=== PATIENT | female | born 1980 | race Caucasian/White ===

== ENCOUNTER → 2017-08-20 13:39 | Outpatient (CLI) | payer OTHER, SELFPAY ==
--- NOTE | 2017-08-20 13:46 | US_ITS ---
STUDY: ULTRASOUND BREAST - LEFT REASON FOR EXAM: Female, 37 years old. Palpable lump left breast. TECHNIQUE: Axial and longitudinal images of the LEFT breast were performed with a high resolution ultrasound transducer. COMPARISON: Comparison is made with prior mammogram done earlier in the day. FINDINGS: LEFT Breast: The upper outer quadrant of the left breast was examined by ultrasound. There is homogeneous fibroglandular tissue. No solid or cystic mass lesion is seen. US/Breast Limited Unilateral IMPRESSION: Unremarkable sonographic examination of the upper outer quadrant of the left breast. ASSESSMENT CATEGORY: BIRADS Category 1: Negative. A letter regarding these results will be sent to the patient by the facility within 30 days. Electronically Signed: Eliu Dallas MD at 15:22 EST Tel [phone], Service support ,
--- NOTE | 2017-08-20 13:46 | HPBI_ITS ---
MAMMOGRAPHY - BILATERAL DIAGNOSTIC REASON FOR EXAM: Female, 37 years old. Left breast lump. The patient is currently nursing. PERTINENT HISTORY: Non-contributory. TECHNIQUE: Digital bilateral breast bren (3D mammographic acquisition) in the CC and MLO projections. 2-D mediolateral oblique (MLO) and craniocaudad (CC) views of both breasts were obtained. CAD: Full Field Digital Mammography with Computer Added Detection was performed. COMPARISON: None. Baseline examination. FINDINGS: Breast Composition: The breasts are heterogeneously dense, which may obscure small masses. There are no dominant masses or suspicious calcifications. No other significant abnormalities are identified. HPBI/DIAG MAMM W/CAD, BILAT IMPRESSION: Negative diagnostic mammogram. With the patient's history of a palpable abnormality in the left breast, correlation with ultrasound is recommended. ASSESSMENT CATEGORY: BIRADS Category 0: Incomplete. Need additional imaging evaluation. A letter regarding these results will be sent to the patient by the facility within 30 days. Approximately 10% of breast cancers are not detected by mammography. A normal mammogram should not delay biopsy of a clinically suspicious abnormality. Electronically Signed: Eliu Dallas MD at 15:15 EST Tel [phone], Service support ,
[2017-08-20 16:19] LABS: Absolute Lymphocyte Count 2.23 X10^3/ul (0.83-4.51); Basophil# 0.03 X10^3/uL; Basophil% 0.5 % (0-1); Eosinophil# 0.07 X10^3/uL; Eosinophils% 1.2 % (0-5); Hematocrit 43.3 % (37-47); Hemoglobin 14.2 g/dl (12.0-15.0); Lymphocyte # 2.23 X10^3/ul (4.0); Mean Corp Hgb Conc 32.8 g/gl (32-36); Mean Corpuscular Hgb 30.5 pg (27.0-32.0); Mean Corpuscular Volume 92.9 fL (81-99); Mean Platelet Vol. 10.4 fl (6.2-12.0); Monocyte# 0.35 X10^3/uL; Monocyte% 6.1 % (0-10); Neutrophil # 3.04 X10^3/uL (2.7-7.7); Neutrophil % 53.2 % (47-70); Platelet Count 274 K/mm3 (150-450); RBC Distribution Width CV 13.6 % (11.6-14.6); RBC Distribution Width SD 46.4 fl (35.1-43.9); Red Blood Count 4.66 M/mm3 (4.2-5.4); White Blood Count 5.7 K/mm3 (4.4-11.0)
[2017-08-20 16:21] LABS: POSITIVE COUNT NO; POSITIVE DIFFERENTIAL NO; POSITIVE MORPHOLOGY NO
[2017-08-20 17:02] LABS: Thyroid Stim Hormone (TSH) 1.84 uIU/mL (0.358-3.74)
== END ==
PROVIDERS: Visit Provider Obstetrics & Gynecology
DX: N63.20 Unspecified lump in the left breast, unspecified quadrant (principal)
CPT/HCPCS: 36415; 76642; 77062; 77066; 84443; 85025; G0279

== ENCOUNTER → 2018-11-19 12:12 | Outpatient (CLI) | payer OTHER, SELFPAY ==
[2018-11-10 14:12] VITALS: BMI 22.6
--- NOTE | 2018-11-19 12:14 | US_ITS ---
STUDY: ULTRASOUND TRANSVAGINAL CLINICAL: Female, 38 years old. Pelvic pain. TECHNIQUE: Transabdominal and Transvaginal COMPARISON: None. FINDINGS: Normal uterine size measuring 7.0 cm in maximal craniocaudal dimension. There are no myometrial masses. Normal endometrial thickness measuring 4.7 mm. There are no endometrial masses, and there is no fluid in the endometrial cavity. Normal uterine cervix. Normal right ovary, measuring 1.6 x 2.7 x 1.6 cm. There are multiple follicles without a dominant cyst. Normal left ovary, measuring 3.0 x 2.9 x 2.2 cm. There is a 1.6 x 1.9 x 2.0 cm simple appearing cyst within the left ovary. There is no free fluid in the pelvis. Polycystic ovary disease: No. US/Transvaginal Non- IMPRESSION: 1.6 x 1.9 x 2.0 cm left ovarian cyst. Electronically Signed: Catherine Maria MD at 16:59 EDT Tel , Service support ,
--- NOTE | 2018-11-19 12:14 | US_ITS ---
STUDY: ULTRASOUND TRANSVAGINAL CLINICAL: Female, 38 years old. Pelvic pain. TECHNIQUE: Transabdominal and Transvaginal COMPARISON: None. FINDINGS: Normal uterine size measuring 7.0 cm in maximal craniocaudal dimension. There are no myometrial masses. Normal endometrial thickness measuring 4.7 mm. There are no endometrial masses, and there is no fluid in the endometrial cavity. Normal uterine cervix. Normal right ovary, measuring 1.6 x 2.7 x 1.6 cm. There are multiple follicles without a dominant cyst. Normal left ovary, measuring 3.0 x 2.9 x 2.2 cm. There is a 1.6 x 1.9 x 2.0 cm simple appearing cyst within the left ovary. There is no free fluid in the pelvis. Polycystic ovary disease: No. US/Pelvic (Non ) IMPRESSION: 1.6 x 1.9 x 2.0 cm left ovarian cyst. Electronically Signed: Catherine Maria MD at 16:59 EDT Tel , Service support ,
== END ==
PROVIDERS: Family Provider Family Medicine; PCP Family Medicine; Referring Provider Nurse Practitioner Women's Health; Visit Provider Nurse Practitioner Women's Health
DX: N93.9 Abnormal uterine and vaginal bleeding, unspecified (principal); R10.2 Pelvic and perineal pain
CPT/HCPCS: 76830; 76856; 93976

== ENCOUNTER → 2019-09-03 15:03 | Outpatient (CLI) | payer OTHER, SELFPAY ==
[2018-11-10 14:12] VITALS: BMI 22.6
[2019-09-03 17:48] LABS: Anion Gap 5 (5-15); BUN 11 mg/dL (7-18); BUN/Creat Ratio 16.4 RATIO (10-20); Calcium,Total 9.3 mg/dL (8.5-10.1); Chloride 108 mmol/L (98-107); Cholesterol 216 mg/dL (200); Creatinine, Serum 0.67 mg/dL (0.55-1.02); EST Glomerular Filtration Rate 103 mL/min (>60); Est Glom Filt Rate - Afr Amer 125 mL/min (>60); Glucose 84 mg/dL (74-106); High Density Lipoprotein 50 mg/dL; Potassium 4.1 mmol/L (3.5-5.1); Sodium Level 140 mmol/L (136-145); Triglycerides 87 mg/dL; Very Low Density Lipoprotein 17 mg/dL (5-40)
[2019-09-03 17:52] LABS: Erythrocyte Sedimentation Rate 6 mm/hr (0-20)
[2019-09-04 07:38] LABS: Vitamin D,25 Hydroxy 27.4 ng/mL
== END ==
PROVIDERS: PCP Family Medicine; Referring Provider Family Medicine; Visit Provider Family Medicine
DX: Z00.00 Encounter for general adult medical examination without abnormal findings (principal)
CPT/HCPCS: 36415; 80048; 80061; 82306; 85652

== ENCOUNTER → 2020-01-27 15:00 | Outpatient (CLI) | payer OTHER, SELFPAY ==
[2018-11-10 14:12] VITALS: BMI 22.6
[2020-01-27 18:35] LABS: Anion Gap 7 (5-15); BUN 8 mg/dL (7-18); BUN/Creat Ratio 9.5 RATIO (10-20); Calcium,Total 9.3 mg/dL (8.5-10.1); Chloride 107 mmol/L (98-107); Cholesterol 248 mg/dL (200); Creatinine, Serum 0.84 mg/dL (0.55-1.02); EST Glomerular Filtration Rate 79 mL/min (>60); Est Glom Filt Rate - Afr Amer 95 mL/min (>60); Glucose 68 mg/dL (74-106); High Density Lipoprotein 58 mg/dL; Potassium 4.6 mmol/L (3.5-5.1); Sodium Level 141 mmol/L (136-145); Triglycerides 100 mg/dL; Very Low Density Lipoprotein 20 mg/dL (5-40)
[2020-01-27 18:47] LABS: Vitamin D,25 Hydroxy 35.5 ng/mL
== END ==
PROVIDERS: PCP Family Medicine; Referring Provider Family Medicine; Visit Provider Family Medicine
DX: Z00.00 Encounter for general adult medical examination without abnormal findings (principal); E55.9 Vitamin D deficiency, unspecified
CPT/HCPCS: 36415; 80048; 80061; 82306

== ENCOUNTER → 2020-07-03 16:06 | Outpatient (CLI) | payer OTHER, SELFPAY ==
[2018-11-10 14:12] VITALS: BMI 22.6
[2020-07-03 18:03] LABS: Absolute Lymphocyte Count 2.82 X10^3/uL (0.83-4.51); Absolute Neutrophil Count 5.1 X10^3/uL (2.0-7.7); Basophil# 0.05 X10^3/uL; Basophil% 0.6 % (0-1); Eosinophil# 0.09 X10^3/uL; Hematocrit 43.5 % (37-47); Hemoglobin 14.3 g/dL (12.0-15.0); Lymphocyte # 2.82 X10^3/ul (4.0); Lymphocyte % 32.8 % (19-41); Mean Corp Hgb Conc 32.9 g/dL (32-36); Mean Corpuscular Hgb 30.3 pg (27.0-32.0); Mean Corpuscular Volume 92.2 fL (81-99); Mean Platelet Vol. 9.9 fl (6.2-12.0); Monocyte# 0.48 X10^3/uL; Monocyte% 5.6 % (0-10); NRBC Flagged by Analyzer 0 % (0-5); Neutrophil # 5.13 X10^3/uL (2.7-7.7); Neutrophil % 59.7 % (47-70); Platelet Count 304 K/mm3 (150-450); RBC Distribution Width CV 13.1 % (11.6-14.6); RBC Distribution Width SD 44.5 fl (35.1-43.9); Red Blood Count 4.72 M/mm3 (4.2-5.4); White Blood Count 8.6 K/mm3 (4.4-11.0)
[2020-07-03 18:34] LABS: Anion Gap 4 (5-15); BUN 10 mg/dL (7-18); BUN/Creat Ratio 12.7 RATIO (10-20); Chloride 111 mmol/L (98-107); Creatinine, Serum 0.78 mg/dL (0.55-1.02); EST Glomerular Filtration Rate 86 mL/min (>60); Est Glom Filt Rate - Afr Amer 103 mL/min (>60); Glucose 103 mg/dL (74-106); Potassium 3.5 mmol/L (3.5-5.1); Sodium Level 140 mmol/L (136-145); Thyroid Stim Hormone (TSH) 1.34 uIU/mL (0.358-3.74)
== END ==
PROVIDERS: PCP Family Medicine; Referring Provider Family Medicine; Visit Provider Family Medicine
DX: R42 Dizziness and giddiness (principal)
CPT/HCPCS: 36415; 80048; 84443; 85025

== ENCOUNTER → 2020-08-21 10:50 | Outpatient (CLI) | payer OTHER, SELFPAY ==
[2020-08-10 13:29] VITALS: BMI 24.3
--- NOTE | 2020-08-21 10:54 | ECHOD_ITS ---
Reason For Study: ARRHYTHMIA Procedure This was a 2D Doppler, Color Flow transthoracic echocardiogram. The exam was of adequate technical quality. Exam performed in department. Left Ventricle Normal LV size. Left ventricular systolic function is normal. The estimated ejection fraction is 60 %. No evidence for diastolic dysfunction. No regional wall motion abnormalities noted. Right Ventricle Normal RV size. Normal systolic function. Atria Normal left atrium. Normal right atrium. No doppler evidence for ASD. Mitral Valve There is no mitral annular calcification. Normal mitral valve. Trivial mitral valve insufficiency. Tricuspid Valve Normal tricuspid valve. Trivial tricuspid valve insufficiency. Right ventricular systolic pressure estimated to be 27 mmHg. Aortic Valve Trisinus/trileaflet aortic valve. Normal aortic valve. Pulmonic Valve The pulmonic valve is not well visualized. Trivial pulmonic valve insufficiency. Great Vessels The aortic root is not well visualized. Pericardium/Pleural No pericardial effusion. MMode/2D Measurements & Calculations LVIDd: 4.0 cm IVSd: 0.79 cm LAV(MOD-bp): 38.6 ml LVIDs: 2.8 cm LVPWd: 0.70 cm LAV(MOD-bp) Indexed: 21.8 ml/m2 RVDd: 3.2 cm FS: 28.8 % LAV(MOD-sp2): 40.0 ml LAV(MOD-sp4): 35.0 ml LA dimension(2D): 2.7 cm LA A4 area: 14.4 cm2 RA A4 area: 9.8 cm2 Time Measurements MV dec time: 0.19 sec Doppler Measurements & Calculations MV E max leobardo: 71.3 cm/sec Lat Peak E' Leobardo: 14.6 cm/sec Med Peak E' Leobardo: 11.6 cm/sec MV A max leobardo: 90.7 cm/sec E/E' lat: 4.9 E/E' med: 6.2 MV E/A: 0.79 Ao V2 max: 136.2 cm/sec LV V1 max: 105.2 cm/sec PA V2 max: 119.2 cm/sec Ao max P.4 mmHg LV V1 max P.4 mmHg TR max leobardo: 244.4 cm/sec TR max P.9 mmHg Interpretation Summary Left ventricular systolic function is normal. The estimated ejection fraction is 60 %. Trivial mitral valve insufficiency. Trivial tricuspid valve insufficiency. Trivial pulmonic valve insufficiency. Right ventricular systolic pressure estimated to be 27 mmHg. No evidence for diastolic dysfunction. Ordering Physician: Uday Goodwin Referring Physician: UDAY SAM Performed By: Angelia Centeno, RDCS, RVT
== END ==
PROVIDERS: PCP Family Medicine; Referring Provider Internal Medicine Cardiovascular Disease; Visit Provider Internal Medicine Cardiovascular Disease
DX: R00.2 Palpitations (principal); R00.0 Tachycardia, unspecified; R53.83 Other fatigue
CPT/HCPCS: 93306

== ENCOUNTER 2021-07-02 11:44 | Outpatient (CLI) | payer OTHER, SELFPAY ==
--- NOTE | 2021-07-02 11:48 | RAD_ITS ---
STUDY: X-RAY - CERVICAL SPINE REASON FOR EXAM: Female, 40 years old. Other intervertebral disc degeneration TECHNIQUE: 3 view(s) of the cervical spine were obtained. COMPARISON: None FINDINGS: Normal anterior atlantoaxial articulation. Normal odontoid process. There is straightening of the normal cervical lordosis. Normal vertebral bodies and endplates. Normal disc space heights. Normal visualized intervertebral neuroforamina. The soft tissue structures are unremarkable. RAD/Cerv Spine 2 or 3 Views IMPRESSION: There is straightening of the normal cervical lordosis. Electronically Signed: Eliu Dallas MD at 15:19 EST , Service support ,
--- NOTE | 2021-07-02 11:49 | RAD_ITS ---
STUDY: X-RAY - LUMBAR SPINE REASON FOR EXAM: Female, 40 years old. Other intervertebral disc degeneration, lumbar region TECHNIQUE: 2 view(s) of the lumbar spine were obtained. COMPARISON: None FINDINGS: Normal lumbar lordosis. There is no substantial scoliosis. There is a normal alignment of the vertebrae. Normal vertebral bodies and endplates. Normal disc space heights. The soft tissue structures are unremarkable. RAD/Lumbar Spine 2 or 3 Views IMPRESSION: Normal x-ray examination of the lumbar spine. Electronically Signed: Eliu Dallas MD at 15:19 EST , Service support ,
--- NOTE | 2021-07-02 11:49 | RAD_ITS ---
STUDY: X-RAY - THORACIC SPINE REASON FOR EXAM: Female, 40 years old. Other intervertebral disc degeneration, TECHNIQUE: 3 view(s) of the thoracic spine were obtained. COMPARISON: None. FINDINGS: Normal kyphosis of the thoracic spine. There is no substantial scoliosis. Normal thoracic vertebrae and endplates. There is a mild degree multilevel disc space narrowing of the thoracic spine. The soft tissue structures are unremarkable. RAD/Thoracic Spine 2 Views IMPRESSION: Mild degree of disc space narrowing. Electronically Signed: Eliu Dallas MD at 15:19 EST , Service support ,
== END 2021-07-02 23:59 | disposition short-term general hospital (02) ==
LOC: RAD 11:46
PROVIDERS: PCP Family Medicine; Referring Provider Anesthesiology Pain Medicine; Visit Provider Anesthesiology Pain Medicine
DX: M51.37 Other intervertebral disc degeneration, lumbosacral region (principal); M50.30 Other cervical disc degeneration, unspecified cervical region
CPT/HCPCS: 72040; 72070; 72100

== ENCOUNTER 2021-08-01 11:00 | Outpatient (RCR) | payer OTHER, SELFPAY ==
--- NOTE | 2021-07-30 13:44 | HP.PTEVAL ---
Patient's Visit Information MARCELA QUESADA is a 41 year old F referred to Physical Therapy by Dr. Fabio Anna MD with a diagnosis of BACK PAIN. Date of Evaluation: 07/30/21 Physical Therapist: Herrera Bermudez PT, Cert MDT, OCS - Visit Plan Frequency: 2x /Week Duration: 4 Weeks Plan: PT INTERVETIONS ALYSSA EX'S,POSTURAL EX'S THORACIC , DLS , AND LLE FLEXABLITY - Subjective This 41 y/o female presents o physical therapy with back pain. Patient pain located mid thoracic and lumbar pain . Patient has thoracic and lumbar pain ~ 7 years since having daughter. Seen DR Moreno did x-rays showed mild DDD thoracic. Occasionally ,paresthesia /tingling leg. Bowel/bladder -. Coughing/sneezing occasional increase symptoms in leg. Patient has had no injury or trauma. Symptoms affects sleeping. Aggravating sitting, standing doing dishes . Alleviating factors rest. No MEDS. Patient goals affects ADLS' and housework. 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 SOCIAL: 2 childern - Pain Bilateral Back Pain Intensity (Out of 10): 1 Pain Intensity Range: 10 Comment: T-LUMBAR - Objective POSTURE: mild forward posture. GAIT: reciprocal pattern. NEURO: c/o paresthesia/tingling right leg , reflexes L3-4,L4-5,L5-S1 2/3. SYMMTRIES: align. THORACIC ROM : flexion WFL, extension WFL, rotation WFL. BUE MMT: 4/5. LUMBAR ROM: flexion min loss, extension mod loss, side glides min loss. MMT: quads/hams 4/5 ,hip flexion 4/5 ,ankle 5/5. FLEXABLITY: hamstrings min/mod loss. MUSCULAR EBDURANCE: 5SEC UNABLE TO MAINTAIN - Special Tests Thoracic Lying: Prone Extension - Mechanical Response: No effect Thoracic Lying: Prone Extension - Symptoms During Testing: No effect Thoracic Lying: Prone Extension - Symptoms After Testing: No effect Thoracic Lying: Supine Extension - Mechanical Response: No effect Thoracic Lying: Supine Extension - Symptoms During Testing: No effect Thoracic Lying: Supine Extention - Symptoms After Testing: No effect L/S Slump test left side: Negative L/S Slump test right side: Negative L/S Left Straight Leg Raise: Negative L/S Right Straight Leg Raise: Negative Lumbar Standing: Flexion - Mechanical Response: No effect Lumbar Standing: Flexion - Symptoms During Testing: No effect Lumbar Standing: Flexion - Symptoms After Testing: No effect Lumbar Standing: Extension - Mechanical Response: No effect Lumbar Standing: Extension - Symptoms During Testing: Increases Lumbar Standing: Extension - Symptoms After Testing: No worse Lumbar Standing: Right Side Glides - Mechanical Response: No effect Lumbar Standing: Right Side [place] - Symptoms During Testing: No effect Lumbar Standing: Right Side [place] - Symptoms After Testing: No effect Lumbar Standing: Left Side [place] - Mechanical Response: No effect Lumbar Standing: Left Side [place] - Symptoms During Testing: No effect Lumbar Standing: Left Side [place] - Symptoms After Testing: No effect Lumbar Lying: Flexion - Mechanical Response: No effect Lumbar Lying: Flexion - Symptoms During Testing: No effect Lumbar Lying: Flexion - Symptoms After Testing: No effect Lumbar Lying: Extension - Mechanical Response: Increases motion Lumbar Lying: Extension - Symptoms During Testing: Decreases Lumbar Lying: Extension - Symptoms After Testing: Better - Balance/Special Test Scores Oswestry Low Back Score: 18 - Goals Goal 1:: Patient to be I with HEP for back pain Goal Time Frame: 4-6 Weeks Goal 2:: Patient improve posture/body mechanics 90% of the time Goal Time Frame: 4-6 Weeks Goal 3:: Patient demonstrate 50% improvement of back pain to improve function with ADL'S Goal Time Frame: 4-6 Weeks Goal 4:: Patient improve lumbar/thoracic ROM for function of recovery to perform ADLS and housework Goal Time Frame: 4-6 Weeks Goal 5:: Patient to improve back oswesty back score by 5 points to improve QOL Goal Time Frame: 4-6 Weeks - Rehabilitation Potential Physical Therapy Diagnosis: This patient has thoracic lumbar derangement with pain with motion testing, positioning along with core weakness will benefit from skilled PT Rehabilitation Potential: Good - Anticipated Interventions Patient/Client Instruction: Educate patient on: Condition, Plan of Care For the Purpose of:: To decrease pain, To increase ROM, To improve muscle performance and motor function, To increase tolerance to activity/condition/position, To improve ability of physical actions for home/community/work/leisure, To improve health of tissue, To decrease soft tissue restriction, To increase flexibility/ROM, To reduce risk of recurrence, To prevent re-injury Therapeutic Exercise to Include: Strength training, Balance training, Postural training, Flexibilty training, Active ROM, Dynamic Lumbar Stabilization, Alyssa Exercises For the Purpose of:: To decrease pain, To increase ROM, To improve muscle performance and motor function, To increase tolerance to activity/condition/position, To improve ability of physical actions for home/community/work/leisure, To improve health of tissue, To decrease soft tissue restriction, To increase flexibility/ROM, To reduce risk of recurrence, To prevent re-injury TENS: Yes IF ES: Yes Cryotherapy (ice pack, ice massage): Yes Thermo therapy (hot pack): Yes Ultrasound (thermal/non thermal): Yes For the Purpose of:: To decrease pain, To increase oxygenation perfusion, To improve health of tissue, To decrease soft tissue restriction Thank you for the opportunity to evaluate your patient. For Medicare and Medicare HMO plans, please review the plan of care and approve it. It will need to be FAXED BACK to us at [phone] for Medicare purposes. For Medicare only, by signing this I certify the plan of care. Please let me know if there are questions or concerns regarding this plan of care. Physician Signature: Date:
--- NOTE | 2022-01-25 11:05 | HP.PT.NRP ---
MARCELA QUESADA was seen in my office for initial evaluation on 07/30/21. The following Plan of Care was established for this patient: Initial Frequency: 2x /Week Initial Duration: 4 Weeks Patient/Client Instruction: Educate patient on: Condition, Plan of Care For the Purpose of:: To decrease pain, To increase ROM, To improve muscle performance and motor function, To increase tolerance to activity/condition/position, To improve ability of physical actions for home/community/work/leisure, To improve health of tissue, To decrease soft tissue restriction, To increase flexibility/ROM, To reduce risk of recurrence, To prevent re-injury Therapeutic Exercise to Include: Strength training, Balance training, Postural training, Flexibilty training, Active ROM, Dynamic Lumbar Stabilization, Fidel Exercises For the Purpose of:: To decrease pain, To increase ROM, To improve muscle performance and motor function, To increase tolerance to activity/condition/position, To improve ability of physical actions for home/community/work/leisure, To improve health of tissue, To decrease soft tissue restriction, To increase flexibility/ROM, To reduce risk of recurrence, To prevent re-injury TENS: Yes IF ES: Yes Cryotherapy (ice pack, ice massage): Yes Thermo therapy (hot pack): Yes Ultrasound (thermal/non thermal): Yes For the Purpose of:: To decrease pain, To increase oxygenation perfusion, To improve health of tissue, To decrease soft tissue restriction This patient was last seen in our office . Pertinent comments regarding their Physical therapy will appear below: Patient was seen for PT for lumbar pain for HEP POSTURE AND DLS thus D/C At this point I will be discontinuing this patient from physical therapy. I would be happy to see this patient again in the future if found appropriate by the physician. Thank you! Herrera Bermudez, PT, Cert MDT, OCS Balance/Gait/Functional tests - Balance/Special Test Scores Oswestry Low Back Score: 18
== END 2021-08-01 19:00 | disposition home or self-care (01) ==
LOC: PT 11:00
PROVIDERS: PCP Family Medicine; Referring Provider Anesthesiology Pain Medicine; Visit Provider Anesthesiology Pain Medicine
DX: M54.9 Dorsalgia, unspecified (principal)
CPT/HCPCS: 97110; 97161

== ENCOUNTER 2021-09-28 11:27 | Outpatient (CLI) | payer OTHER, SELFPAY ==
[2021-09-28 14:46] LABS: Absolute Lymphocyte Count 2.13 X10^3/uL (0.83-4.51); Absolute Neutrophil Count 4.9 X10^3/uL (2.0-7.7); Basophil# 0.04 X10^3/uL; Basophil% 0.5 % (0-1); Eosinophil# 0.04 X10^3/uL; Eosinophils% 0.5 % (0-5); Hematocrit 45.2 % (37-47); Hemoglobin 15.1 g/dL (12.0-15.0); Lymphocyte # 2.13 X10^3/ul (0.83-4.51); Mean Corp Hgb Conc 33.4 g/dL (32-36); Mean Corpuscular Hgb 30.9 pg (27.0-32.0); Mean Corpuscular Volume 92.6 fL (81-99); Mean Platelet Vol. 9.8 fl (6.2-12.0); Monocyte% 6.6 % (0-10); NRBC Flagged by Analyzer 0 % (0-5); Neutrophil # 4.88 X10^3/uL (2.7-7.7); Neutrophil % 64.3 % (47-70); Platelet Count 301 K/mm3 (150-450); RBC Distribution Width CV 13.4 % (11.6-14.6); RBC Distribution Width SD 46.2 fl (35.1-43.9); Red Blood Count 4.88 M/mm3 (4.2-5.4); White Blood Count 7.6 K/mm3 (4.4-11.0)
[2021-09-28 15:18] LABS: Anion Gap 5 (5-15); BUN 11 mg/dL (7-18); BUN/Creat Ratio 16.8 RATIO (10-20); Calcium,Total 9.6 mg/dL (8.5-10.1); Chloride 109 mmol/L (98-107); Cholesterol 192 mg/dL (200); Creatinine, Serum 0.65 mg/dL (0.55-1.02); EST Glomerular Filtration Rate 105 mL/min (>60); Est Glom Filt Rate - Afr Amer 127 mL/min (>60); Glucose 86 mg/dL (74-106); High Density Lipoprotein 67 mg/dL; Potassium 4.9 mmol/L (3.5-5.1); Sodium Level 139 mmol/L (136-145); Triglycerides 90 mg/dL; Very Low Density Lipoprotein 18 mg/dL (5-40)
== END 2021-09-28 23:59 | disposition home or self-care (01) ==
LOC: MFPLAB 11:28
PROVIDERS: PCP Family Medicine; Referring Provider Family Medicine; Visit Provider Family Medicine
DX: Z01.419 Encounter for gynecological examination (general) (routine) without abnormal findings (principal)
CPT/HCPCS: 36415; 80048; 80061; 85025

== ENCOUNTER → 2022-02-07 | Outpatient (CLI) | payer OTHER, SELFPAY ==
--- NOTE | 2022-02-07 12:39 | BI_ITS ---
MAMMOGRAPHY - BILATERAL SCREENING REASON FOR EXAM: Female, 41 years old. Routine annual screening examination. PERTINENT HISTORY: Mother with breast cancer. TECHNIQUE: Digital bilateral breast al (3D mammographic acquisition) in the CC and MLO projections. 2-D mediolateral oblique (MLO) and craniocaudad (CC) views of both breasts were obtained. CAD: Full Field Digital Mammography with Computer Added Detection was performed. COMPARISON: Comparison is made with prior study dated 08/20/2017. FINDINGS: Breast Composition: There are scattered areas of fibroglandular density. There are no dominant masses or suspicious calcifications. No other significant abnormalities are identified. There has been no significant change since the prior study. BI/SCRN MAMM (CAD)W/AL BILAT IMPRESSION: Stable bilateral screening mammogram. Yearly follow-up mammogram recommended. (A) ASSESSMENT CATEGORY: BIRADS Category 1: Negative. A letter regarding these results will be sent to the patient by the facility within 30 days. Approximately 10% of breast cancers are not detected by mammography. A normal mammogram should not delay biopsy of a clinically suspicious abnormality. [id number] Electronically Signed: Eliu Dallsa MD at 13:23 EDT ,
== END | disposition home or self-care (01) ==
LOC: OPBI 12:36
PROVIDERS: PCP Family Medicine; Visit Provider Family Medicine
DX: Z12.31 Encounter for screening mammogram for malignant neoplasm of breast (principal); Z80.3 Family history of malignant neoplasm of breast
CPT/HCPCS: 77063; 77067

== ENCOUNTER → 2023-02-20 | Outpatient (CLI) | payer OTHER, SELFPAY ==
[2023-02-20 16:05] LABS: Vitamin D,25 Hydroxy 35.8 ng/mL
[2023-02-20 16:17] LABS: Anion Gap 7 (5-15); BUN 11 mg/dL (7-18); BUN/Creat Ratio 13.6 RATIO (10-20); Calcium,Total 9.8 mg/dL (8.5-10.1); Chloride 106 mmol/L (98-107); Cholesterol 159 mg/dL (200); Creatinine, Serum 0.81 mg/dL (0.55-1.02); EST Glomerular Filtration Rate 82 mL/min (>60); Est Glom Filt Rate - Afr Amer 99 mL/min (>60); Glucose 88 mg/dL (74-106); High Density Lipoprotein 61 mg/dL; Sodium Level 134 mmol/L (136-145); Thyroid Stim Hormone (TSH) 1.26 uIU/mL (0.358-3.74); Triglycerides 82 mg/dL; Very Low Density Lipoprotein 16 mg/dL (5-40)
== END | disposition home or self-care (01) ==
LOC: MFPLAB 10:49
PROVIDERS: PCP Family Medicine; Visit Provider Family Medicine
DX: Z01.419 Encounter for gynecological examination (general) (routine) without abnormal findings (principal)
CPT/HCPCS: 36415; 80048; 80061; 82306; 84443

== ENCOUNTER → 2023-03-26 | Outpatient (CLI) | payer OTHER, SELFPAY ==
--- NOTE | 2023-03-26 12:14 | BI_ITS ---
MAMMOGRAPHY - BILATERAL SCREENING REASON FOR EXAM: Female, 42 years old. Routine annual screening examination. PERTINENT HISTORY: Mother with breast cancer. TECHNIQUE: Digital bilateral breast al (3D mammographic acquisition) in the CC and MLO projections. 2-D mediolateral oblique (MLO) and craniocaudad (CC) views of both breasts were obtained. CAD: Full Field Digital Mammography with Computer Added Detection was performed. COMPARISON: Comparison is made with prior examination dated February 08, 2020 August 20, 2017. FINDINGS: Breast Composition: There are scattered areas of fibroglandular density. There are no dominant masses or suspicious calcifications. No other significant abnormalities are identified. There has been no significant change since the prior study. BI/SCRN MAMM (CAD)W/AL BILAT IMPRESSION: Stable bilateral screening mammogram. Yearly follow-up mammogram recommended. (A) ASSESSMENT CATEGORY: BIRADS Category 1: Negative. A letter regarding these results will be sent to the patient by the facility within 30 days. Approximately 10% of breast cancers are not detected by mammography. A normal mammogram should not delay biopsy of a clinically suspicious abnormality. [id number] Electronically Signed: Eliu Dallas MD at 13:04 EDT ,
== END | disposition home or self-care (01) ==
LOC: OPBI 12:13
PROVIDERS: PCP Family Medicine; Referring Provider Family Medicine; Visit Provider Family Medicine
DX: Z12.31 Encounter for screening mammogram for malignant neoplasm of breast (principal); Z80.3 Family history of malignant neoplasm of breast
CPT/HCPCS: 77063; 77067

== ENCOUNTER 2023-06-16 08:45 | Emergency (ER) | payer OTHER, SELFPAY ==
[2023-06-16 08:46] VITALS: PULSE 104; RESP 16; TEMP 36.3; O2SAT 98; BMI 21.3
--- NOTE | 2023-06-16 09:01 | EDS_ITS ---
HPI History of Present Illness Chief Complaint: Upper Extremity Injury Informant: patient Occured/Mechanism Mechanism/Context: Yes injury Onset/Context/Timing Onset: Yesterday Context: Sudden Onset Timing: Continuous Quality of Pain: Aching Location: R hand Current Severity: Moderate Maximum Severity: Moderate Worsened by: moving 5th finger Relieved by: remaining still Associated Symptoms Associated Symptoms: Positive for Loss of Funtion; Negative for Parasthesia or Weakness Narrative Narrative: Patient states her son is a wrestler and she was wrestling with him at home last night and during this, she is unsure about the exact mechanism but injured her right hand and felt a pop and pain, has had swelling and bruising since then and moving her little finger. [id number]. No other injuries. [facility] Medical History (Updated 06/16/23 @ 10:[address] Timbo Casillas MD) Abnormal Pap smear of cervix Abnormal uterine bleeding IBS (irritable bowel syndrome) Panic disorder Tachycardia Home Medications multivitamin,[id number] (Complete Multivitamin tablet) 1 tab PO QDAY 08/18/17 [History Last Taken Unknown] sertraline 25 mg tablet (Zoloft) 25 mg PO QDAY 08/18/17 [History Last Taken Unknown] rosuvastatin 5 mg tablet 5 mg PO DAILY 08/08/20 [History Last Taken Unknown] lactobacillus combination no.8 3 billion cell capsule (Adult Probiotic) 3,000 mmu cells PO DAILY 08/10/20 [History Last Taken Unknown] Allergy/AdvReac Type Severity Reaction Status Date / Time No Known Allergies Allergy Verified 06/16/23 08:45 Family History Uncle Myocardial infarction Grandmother CVA (cerebral vascular accident) Aunt Carotid artery disease Surgical History H/O tubal ligation History of wisdom tooth extraction, class II edentulism Social History Smoking Status: Light Smoker (<10/day) alcohol intake: current details: social substance use type: does not use caffeine: Yes what type of physical activity do you participate in: none seatbelt use: always do you feel safe at home: Yes additional social history: [employer] Patient is unemployed ROS ROS ED Constitutional Constitutional ED: Denies chills or fever(s) Musculoskeletal Musculoskeletal: Reports extremity pain; Denies neck pain Integumentary Denies Abrasions, rash or wounds Neurologic Neurologic: Denies paresthesias or weakness EXAM Physical Exam Const Vital Signs: 06/16/23 08:46 Temperature 97.4 F L Temperature Source Temporal Pulse Rate 104 H Respiratory Rate 16 Pulse Ox 98 Oxygen Delivery Method Room Air Positive well nourished and well developed General Appearance ED: well developed and NAD Neck full ROM and supple Back/Spine normal ROM and normal to inspection Extremity Extremity Narrative: There is a deformity of the right fifth digit of the hand, the small finger is in a valgus deformity. The finger itself is nontender. She can move the joint without pain in the finger proper but limited due to pain in the area of the metacarpal where there is swelling and ecchymosis, and tenderness. No other areas of bony tenderness including the wrist. Neuro oriented x3, no focal motor deficits and no sensory deficits noted Sensorium / Orientation: alert Psych mental status grossly normal and thought process normal Skin no wounds Rashes: no rashes MDM MDM MDM Narrative Medical decision making narrative: Three-view x-ray series of the right hand was obtained, and on my interpretation it shows a nondisplaced oblique fracture midshaft fifth metacarpal. I reviewed the radiology report, which states that the series is negative, and I disagree with it. I discussed this with the patient, she is in agreement, stating I saw the crack when they shot the picture. Furthermore it is directly where she is hurting and bruised/swollen. She is placed in an ulnar gutter splint see the procedure note. There is no reduction necessary although she does have a valgus deformity of the finger which is why I want her to follow-up with orthopedics, but since on the x-ray there is no displacement, I felt simply pushing her fifth digit into abduction against the fourth would be most reasonable as opposed to trying maneuvers for possible reduction which could make the fracture worse and displaced. Procedures Upper Extremity Splints Upper Extremity Splint: Orthoglass and Ulnar gutter (NVID after placement) Splint Fabrication: Fabricated Location: Right Discharge Plan Triage Chief Complaint: Upper Extremity Injury ED Provider: Timbo Casillas Dx/Rx/DC Orders Clinical Impression: Closed fracture of shaft of fifth metacarpal bone of right hand Instructions: ED Closed Hand Fracture (Adult), ED Splint Care, Fiberglass Prescriptions: No Action sertraline [Zoloft] 25 mg tablet 25 mg PO QDAY multivitamin,ii-uoxm-nowbtotx tablet tablet 1 tab PO QDAY Adult Probiotic 3 billion cell capsule 3,000 mmu cells PO DAILY Rx Instructions: administer with a meal rosuvastatin 5 mg tablet 5 mg PO DAILY Primary Care Provider: Uday Maurer Referrals: Emanuel Chirinos DO [Med Staff - Active Staff] - As soon as possible (call for appt to be seen within next 2 weeks) Uday Maurer MD [Primary Care Provider] - Disposition Disposition: Home, Self Care
--- NOTE | 2023-06-16 09:08 | RAD_ITS ---
INDICATION: injury EXAMINATION/TECHNIQUE: X-RAY - RIGHT XR Hand Min 3 Views 3 VIEWS COMPARISON: No relevant prior comparison study available FINDINGS: SOFT TISSUES: No soft tissue swelling or gas. No radiopaque foreign body. BONES/JOINTS: No acute fracture or subluxation.. Normal alignment. Preservation of the joint space.. No sclerotic or destructive changes observed. RAD/Hand Min 3 Views IMPRESSION: Negative. Electronically Signed: Catherine Maria MD at 9:23 EST ,
== END 2023-06-16 10:23 | disposition home or self-care (01) ==
PROVIDERS: Emergency Provider Emergency Medicine; PCP Family Medicine; Visit Provider Emergency Medicine
DX: S62.326A Displaced fracture of shaft of fifth metacarpal bone, right hand, initial encounter for closed fracture (principal); F17.200 Nicotine dependence, unspecified, uncomplicated; Y93.72 Activity, wrestling
CPT/HCPCS: 29125; 73130; 99282

== ENCOUNTER → 2024-04-01 | Outpatient (CLI) | payer OTHER, SELFPAY ==
[2024-04-01 19:06] LABS: Anion Gap 8 (5-15); BUN 9 mg/dL (7-18); BUN/Creat Ratio 12.2 RATIO (10-20); Chloride 113 mmol/L (98-107); Cholesterol 180 mg/dL (200); Creatinine, Serum 0.74 mg/dL (0.55-1.02); EST Glomerular Filtration Rate 90 mL/min (>60); Est Glom Filt Rate - Afr Amer 109 mL/min (>60); Glucose 95 mg/dL (74-106); High Density Lipoprotein 72 mg/dL; Potassium 4.1 mmol/L (3.5-5.1); Sodium Level 146 mmol/L (136-145); Triglycerides 103 mg/dL; Very Low Density Lipoprotein 21 mg/dL (5-40)
== END | disposition home or self-care (01) ==
PROVIDERS: PCP Family Medicine; Referring Provider Family Medicine; Visit Provider Family Medicine
DX: Z00.00 Encounter for general adult medical examination without abnormal findings (principal)
CPT/HCPCS: 36415; 80048; 80061

== ENCOUNTER → 2024-07-05 | Outpatient (CLI) | payer OTHER, SELFPAY ==
--- NOTE | 2024-07-05 11:15 | RAD_ITS ---
EXAM: XR ABDOMEN, 1 VIEW CLINICAL INDICATION: sitz marker day 3 TECHNIQUE: Frontal supine view of the abdomen/pelvis. COMPARISON: No relevant prior studies available. FINDINGS: LOWER THORAX: Lung bases are clear as imaged. GASTROINTESTINAL TRACT: Unremarkable. No bowel obstruction. ORGANS: Unremarkable as visualized. No organomegaly. No abnormal calcifications. BONES/JOINTS: Bones are normal. SOFT TISSUES: 2 metallic markers are seen projecting over the left pelvis. RAD/Abdomen Single View IMPRESSION: 1. No acute disease or bowel obstruction. 2. 2 metallic markers are seen projecting over the left pelvis. Electronically Signed: Clint Epstein MD at 13:10 EST ,
== END | disposition home or self-care (01) ==
LOC: MTRAD 11:14
PROVIDERS: PCP Family Medicine; Referring Provider Student in an Organized Health Care Education/Training Program; Visit Provider Student in an Organized Health Care Education/Training Program
DX: K59.00 Constipation, unspecified (principal)

== ENCOUNTER → 2024-07-07 | Outpatient (CLI) | payer OTHER, SELFPAY ==
--- NOTE | 2024-07-07 10:27 | RAD_ITS ---
STUDY: X-RAY - ABDOMEN/PELVIS REASON FOR EXAM: Female, 43 years old. sitz marker day 5 TECHNIQUE: Frontal views COMPARISON: None. FINDINGS: Normal visualized lung bases. There is an unremarkable bowel gas pattern. There is no demonstrated free abdominal air. The visualized liver, spleen and kidneys are grossly normal in size and morphology. There are 2 stable clips noted over the left side of the pelvis similar to previous study. No sitz markers are seen. Normal soft tissue structures. Normal visualized osseous structures. RAD/Abdomen Single View IMPRESSION: Normal x-ray examination of the abdomen and pelvis. Electronically Signed: Sudarshan De La Vega DO at 17:45 EST ,
== END | disposition home or self-care (01) ==
LOC: MTRAD 10:27
PROVIDERS: PCP Family Medicine; Referring Provider Student in an Organized Health Care Education/Training Program; Visit Provider Student in an Organized Health Care Education/Training Program
DX: K59.00 Constipation, unspecified (principal)
CPT/HCPCS: 74018

== ENCOUNTER 2024-08-25 09:08 | Day surgery (SDC) | payer OTHER, SELFPAY ==
--- NOTE | 2024-08-24 11:24 | PAT.ANE_ITS ---
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 When Was Last Pacemaker Check QUESTION #4 FULL TEXT: You/Your Family Experience fever (hyperthermia) with Anesthesia Last Oral Intake Last Oral intake: Last Oral Intake NPO since Meds taken in AM with sips of water? Meds patient instructed to take am of surgery PONV PONV - mathematical scientist: PONV - mathematical scientist Female Yes 08/24/24 09:23 HX of Motion Sickness No 08/24/24 09:23 HX of N/V After Surgery No 08/24/24 09:23 Non-Smoker No 08/24/24 09:23 Duration of Surgery greater No 08/24/24 09:23 than 60 minutes Number of Risk Factors 1 08/24/24 09:23 PONV Score Low Risk 08/24/24 09:23 Height & Weight Height & Weight: Anesthesia: Height & Weight Height 5 ft 6 in 06/16/23 08:46 Respiratory Assessment Respiratory Assessment - mathematical scientist: Respiratory Tract Infection Hx - mathematical scientist Hx Respiratory Tract Infection No 08/24/24 09:23 STOP Sleep Apnea STOP Sleep Apnea - mathematical scientist: STOP Sleep Apnea - mathematical scientist Hx Hypertension No 08/24/24 09:23 Hx Sleep Apnea No 08/24/24 09:23 CPAP No 06/07/14 15:09 BIPAP No 06/07/14 15:09 Do you snore loudly (louder No 08/24/24 09:23 than talking or can be heard Do you often feel tired/ No 08/24/24 09:23 fatigued/ sleepy during daytime? Has anyone observed you stop No 08/24/24 09:23 breathing during sleep? STOP Results Negative 08/24/24 09:23 QUESTION #5 FULL TEXT : Do you snore loudly (louder than talking or can be heard through closed doors)? 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 Specify any problems Hx of Preganancy in last 3 N/A 08/24/24 09:23 Months Nurse Filling Out Transfusion NBUCHER 08/24/24 09:23 & Questions: Date: 08/24/24 08/24/24 09:23 Time: 09:24 08/24/24 09:23 Patient unable to answer at this time (ie. confused, unrespo /Reproduction History /Reproductive History - mathematical scientist: /Reproductive Hx- mathematical scientist Hx Now No 08/24/24 09:23 Gestational Age (in weeks): EDC: Hx Hx Para Hx Section SAB No 08/24/24 09:23 [facility] Medical History (Updated 08/24/24 @ 09:33 by Aliya Moser) Anxiety Arthritis High cholesterol Low iron History of IBS Smoker History of Holter monitoring History of echocardiogram Cardiology follow-up encounter Tachycardia Abnormal uterine bleeding IBS (irritable bowel syndrome) Abnormal Pap smear of cervix Panic disorder Home Medications ?Medication ?Instructions ?Recorded ?Last Taken ?Type multivitamin,gj-groj-[id number] 1 tab PO QDAY 08/18/17 U nknown History (Complete Multivitamin tablet) sertraline 25 mg tablet (Zoloft) 25 mg PO QDAY 8 Unknown History rosuvastatin 5 mg tablet 5 mg PO DAILY 08/08/20 Unkno wn History lactobacillus combination no.8 3 3,000 mmu cells PO DA KENNEDY 08/10/20 Unknown History billion cell capsule (Adult Probiotic) Allergy/AdvReac Type Severity Reaction Status Date / Time No Known Allergies Allergy Verified 08/24/24 09:22 Family History Uncle Myocardial infarction Grandmother CVA (cerebral vascular accident) Aunt Carotid artery disease Surgical History (Updated 08/24/24 @ 09:33 by Aliya Moser) History of colonoscopy H/O tubal ligation History of wisdom tooth extraction, class II edentulism Social History Smoking Status: Heavy Smoker (>10/day) alcohol intake: current details: social substance use type: does not use caffeine: Yes what type of physical activity do you participate in: none seatbelt use: always do you feel safe at home: Yes 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 Sinus rhythm. Echo (EF%) pertinent findings: August 21, 2020. Ejection fraction 60%. Right ventricular systolic pressure is 27 mmHg. No aortic stenosis seen. Consult pertinent findings: November 07, 2020. [facility] MOTA. 1. Tachycardia-patient's echo August 21, 2020 noted. Patient's symptoms have improved. Thought to be related to lack of sleep and increased caffeine intake and tobacco abuse. Encouraged to modify lifestyle. Additional pertinent findings: Holter monitor performed on July 06, 2020. Patient has normal sinus rhythm. 2.8% of the time there was tachycardia. There was 1 pause of 2.6 seconds. Ventricular ectopics were represented 2.36% of the total beat count. Supraventricular ectopics were 0.37% of total [address] depression noted. Recommendation Anesthesia Recommendation Anesthesia recommendation: OPTIMIZED for anesthesia
[2024-08-25] VITALS (7 sets, daily range): BP systolic 71–104; BP diastolic 46–77; PULSE 69–98; RESP 12–16; TEMP 36.3–36.4; O2SAT 97–99; BMI 22.4
--- NOTE | 2024-08-25 09:16 | PCM.PRE.AN2 ---
ASA Classification* ASA Classification ASA Classification: 2 Assessment & Plan Anesthesia* Anesthesia Assessment Anesthesia Assessment: Discussed sedation and/or anesthesia options, risks, benefits, and alternatives with patient/parents/legal guardian/POA. Questions invited. The patient/parents/legal guardian/POA seems to understand and agrees to proceed with anesthesia plan. Reviewed the physical assessment, medical history, allergy history and patient home medications list prior to surgery/procedure/anesthetic and documented any changes. Performed airway and anesthesia risk assessments. Anesthesia Type Anesthesia Type: MAC Anesthesia Focused Assessment* Airway Assessment Mouth opens: >3 cm Mallampati Score: II Focused Labs Anesthesia Preop lab: CBC WBC 7.6 K/mm3 (4.4-11.0) 09/28/21 11:09/28/21 RBC 4.88 M/mm3 (4.2-5.4) 09/28/21 11:09/28/21 Hgb 15.1 g/dL (12.0-15.0) H 09/28/21 11:31 09/28/21 Hct 45.2 % (37-47) 09/28/21 11:31 09/28/21 Plt Count 301 K/mm3 (150-450) 09/28/21 11:31 09/28/21 CHEMISTRY Potassium 4.1 mmol/L (3.5-5.1) 04/01/24 15:37 04/01/24 Sodium 146 mmol/L (136-145) H 04/01/24 15:37 04/01/24 BUN 9 mg/dL (7-18) 04/01/24 15:37 04/01/24 Creatinine 0.74 mg/dL (0.55-1.02) 04/01/24 15:37 04/01/24 Glucose 95 mg/dL (74-106) 04/01/24 15:37 04/01/24 TSH 1.26 uIU/mL (0.358-3.74) 02/20/23 10:50 02/20/23 COAG PT 12.3 SECONDS (11.7-14.9) 06/07/14 15:26 06/07/14 Pre-Assessment Diagnosis/Proposed Procedure Planned Operative Procedure(s): cscope Anesthesia History 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 When Was Last Pacemaker Check QUESTION #4 FULL TEXT: You/Your Family Experience fever (hyperthermia) with Anesthesia Last Oral Intake Last Oral intake: Last Oral Intake NPO since Meds taken in AM with sips of water? Meds patient instructed to take am of surgery PONV PONV - assembling fabricator: PONV - assembling fabricator Female Yes 08/24/24 09:23 HX of Motion Sickness No 08/24/24 09:23 HX of N/V After Surgery No 08/24/24 09:23 Non-Smoker No 08/24/24 09:23 Duration of Surgery greater No 08/24/24 09:23 than 60 minutes Number of Risk Factors 1 08/24/24 09:23 PONV Score Low Risk 08/24/24 09:23 Height & Weight Height & Weight: Anesthesia: Height & Weight Height 5 ft 6 in 06/16/23 08:46 Respiratory Assessment Respiratory Assessment - assembling fabricator: Respiratory Tract Infection Hx - assembling fabricator Hx Respiratory Tract Infection No 08/24/24 09:23 STOP Sleep Apnea STOP Sleep Apnea - assembling fabricator: STOP Sleep Apnea - assembling fabricator Hx Hypertension No 08/24/24 09:23 Hx Sleep Apnea No 08/24/24 09:23 CPAP No 06/07/14 15:09 BIPAP No 06/07/14 15:09 Do you snore loudly (louder No 08/24/24 09:23 than talking or can be heard Do you often feel tired/ No 08/24/24 09:23 fatigued/ sleepy during daytime? Has anyone observed you stop No 08/24/24 09:23 breathing during sleep? STOP Results Negative 08/24/24 09:23 QUESTION #5 FULL TEXT : Do you snore loudly (louder than talking or can be heard through closed doors)? Tobacco Use History Tobacco Use History - assembling fabricator: Tobacco Use History - assembling fabricator Tobacco Use Smoking Status Heavy Smoker (>10/day) 08/24/24 09:23 Hx Tobacco Use Yes 08/24/24 09:23 Years Smoking Packs Smoked per Day 1 08/24/24 09:23 Smoking Cessation Date was within the last 15 years Hx Smoking Cessation Date Hx Smoking Cessation Counseling Hematologic Medial History Hematologic Hx - assembling fabricator: Hematologic Medical Hx - demand inspector Hx of Blood Transfusion No 08/24/24 09:23 Hx of Transfusion in last 3 No 08/24/24 09:23 Months Date of Last Transfusion (if within last 3 months) Ever experience any problems No 08/24/24 09:23 with transfusion(s)? Specify any problems Hx of Preganancy in last 3 N/A 08/24/24 09:23 Months Nurse Filling Out Transfusion NBUCHER 08/24/24 09:23 & Questions: Date: 08/24/24 08/24/24 09:23 Time: 09:24 08/24/24 09:23 Patient unable to answer at this time (ie. confused, unrespo /Reproduction History /Reproductive History - assembling fabricator: /Reproductive Hx- assembling fabricator Hx Now No 08/24/24 09:23 Gestational Age (in weeks): EDC: Hx Hx Para Hx Section SAB No 08/24/24 09:23 [facility] Medical History Anxiety Arthritis High cholesterol Low iron History of IBS Smoker History of Holter monitoring History of echocardiogram Cardiology follow-up encounter Tachycardia Abnormal uterine bleeding IBS (irritable bowel syndrome) Abnormal Pap smear of cervix Panic disorder Home Medications ?Medication ?Instructions ?Recorded ?Last Taken ?Type multivitamin,[id number]-fcnx-[id number] 1 tab PO QDAY 08/18/17 Unknown History (Complete Multivitamin tablet) sertraline 25 mg tablet (Zoloft) 25 mg PO QDAY 08/18/17 Unknown History rosuvastatin 5 mg tablet 5 mg PO DAILY 08/08/20 Unknown History lactobacillus combination no.8 3 3,000 mmu cells PO DAILY 08/10/20 Unknown History billion cell capsule (Adult Probiotic) Allergy/AdvReac Type Severity Reaction Status Date / Time No Known Allergies Allergy Verified 08/24/24 09:22 Family History Uncle Myocardial infarction Grandmother CVA (cerebral vascular accident) Aunt Carotid artery disease Surgical History History of colonoscopy H/O tubal ligation History of wisdom tooth extraction, class II edentulism Social History Smoking Status: Heavy Smoker (>10/day) alcohol intake: current details: social substance use type: does not use caffeine: Yes what type of physical activity do you participate in: none seatbelt use: always do you feel safe at home: Yes 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
--- NOTE | 2024-08-25 10:15 | COLBX_PTH ---
PATIENT: MARCELA QUESADA LOC: EN U#:[id number] AGE/SX: 44/F ROOM: RE08/25/[address]: Dr. Gary Starks DO : 1980 BED: DIS: 08/25/2024 SPEC #: [id number] RECD: 08/25/24 12:19 STATUS: LEEANN RERigo #: [id number] CRIS: 08/25/24 10:[address]: Gary Starks DEPT: SURGICAL PATHOLOGY RECD BY: Popeye Gallagher ENTERED: 08/25/24 12:32 SP TYPE: COLON BX OTHR DR: Dr. Uday Maurer MD Tissues: Rectum, NOS Procedures: Surgery Specimen Level IV HEADER OPERATION: Colonoscopy and polypectomy PRE-OP DIAGNOSIS: Constipation TISSUE SUBMITTED: Rectal polyp MICROSCOPIC DIAGNOSIS Rectum, polyp, biopsy: * Tubular adenoma. MICROSCOPIC DESCRIPTION Slides are reviewed. GROSS DESCRIPTION Received in fixative is one container labeled with the patient's name and designated Rectal polyp. The specimen consists of multiple irregular fragments of light rojas soft tissue that in aggregate measure 1.5 x 0.5 x 0.1 cm. The specimen is totally submitted in one cassette. 08/25/2024 CPT:90873
--- NOTE | 2024-08-25 10:32 | HP.PCM_ITS ---
HPI - General General Date of Admission: 08/25/24 Date of Service: 08/25/24 Chief Complaint: constipation HPI Narrative MARCELA QUESADA, is a 44 F who presents for the evaluation of constipation alternating with loose stools Pt was referred here to us for a screening colonoscopy. On interview, pt has had years of issues with constipation alternating with loose stools for many years. She is unable to tell me exactly how often she is having a bm as it is very sporadic. She had a colonoscopy about 10 years ago for these symptoms which was without abnormality. She has had two vaginal births in the past and feels she may have a pelvic floor issues. [facility] Medical History Anxiety Arthritis High cholesterol Low iron History of IBS Smoker History of Holter monitoring History of echocardiogram Cardiology follow-up encounter Tachycardia Abnormal uterine bleeding IBS (irritable bowel syndrome) Abnormal Pap smear of cervix Panic disorder Home Medications ?Medication ?Instructions ?Recorded ?Last Taken ?Type multivitamin,dk-scwd-paafevty 1 tab PO QDAY 08/18/17 U nknown History (Complete Multivitamin tablet) sertraline 25 mg tablet (Zoloft) 25 mg PO QDAY 8 08/24/24 History rosuvastatin 5 mg tablet 5 mg PO DAILY 08/08/2008/24 History lactobacillus combination no.8 3 3,000 mmu cells PO DA KENNEDY 08/10/20 Unknown History billion cell capsule (Adult Probiotic) Allergy/AdvReac Type Severity Reaction Status Date / Time No Known Allergies Allergy Verified 08/25/24 09:21 Family History Uncle Myocardial infarction Grandmother CVA (cerebral vascular accident) Aunt Carotid artery disease Surgical History History of colonoscopy H/O tubal ligation History of wisdom tooth extraction, class II edentulism Social History Smoking Status: Heavy Smoker (>10/day) alcohol intake: current details: social substance use type: does not use caffeine: Yes what type of physical activity do you participate in: none seatbelt use: always do you feel safe at home: Yes 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 ROS Constitutional Constitutional: Denies fatigue, fever(s), poor appetite, weight gain or weight loss Gastrointestinal Gastrointestinal: Denies belching, bloating, change in bowel habits, change in stool character, chewing difficulty, coffee ground emesis, constipation, cramping, diarrhea, dyspepsia, dysphagia, early satiety, excessive flatus, fecal incontinence, heartburn, hematemesis, hematochezia, hemorrhoids, loose stools, melena, nausea, odynophagia, rectal bleeding, tenesmus, vomiting or weight changes Vital Signs Vital Signs Vital Signs: 08/25/24 09:21 08/25/24 09:21 Temperature 97.5 F L Temperature Source Temporal Pulse Rate 98 Respiratory Rate 16 Respiratory Pattern Normal Blood Pressure 104/77 Blood Pressure Mean 86 Blood Pressure Source Monitor Blood Pressure Position Semi-Fowlers Blood Pressure Location Left Arm Pulse Ox 99 Oxygen Delivery Method Room Air Weight Weight: 134 lb 7.712 oz Body Mass Index (BMI) 22.4 Physical Exam Const alert, oriented x3, no apparent distress and healthy appearing General Appearance: cooperative GI normal to inspection, nondistended, normoactive bowel sounds, soft to palpation, non-tender and non-distended Percussion: normal to percussion Rectal Exam: deferred Assessment & Plan Assessment/Plan (1) Constipation: (2) IBS (irritable bowel syndrome): PLAN: Assessment and Plan Assessment and Plan (1) Constipation: Status: Acute Plan: This is a 43 yo female pt here today for establishment with [facility]. Pt has a long hx of IBS type symptoms with constipation alternating with diarrhea. Pt had a colonoscopy about 10 years ago which was normal. She will undergo colonoscopy to assess her lower GI tract and for screening purposes. I will also order sitz marker test to establish slow transit constipation vs a pelvic floor dysfunction. Will consider treatment for constipation if indicated following sitz marker. -Colonoscopy -Sitz marker -Consider Linzess -f/u after procedure (2) IBS (irritable bowel syndrome): Status: Acute Orders: Orders Abdomen Single View Today K59.00 - Constipation, unspecified Abdomen Single View 5 Days K59.00 - Constipation, unspecified
--- NOTE | 2024-08-25 11:12 | OP.CCLET_ITS ---
08/25/2024 Uday Maurer MD [address] [id number] Re : Colonoscopy procedure for Angela Dobbins Dear Dr. Maurer This procedure was performed on Sunday, August 25, 2024. My impressions and recommendations are as follows: Impressions : - Hemorrhoids found on perianal exam. - One 7 mm polyp in the rectum, removed with a jumbo cold forceps. Resected and retrieved. - Diverticulosis in the recto-sigmoid colon. - The examination was otherwise normal on direct and retroflexion views. Recommendations : - Discharge patient to home. - Resume previous diet. - Continue present medications. - Repeat colonoscopy in 5 years for surveillance. My findings are described in the full procedure note, which is enclosed. If I can be of further assistance, please feel free to contact me at . Sincerely, Gary Starks, 08/25/2024 11:11:55 AM This report has been signed electronically.
--- NOTE | 2024-08-25 11:12 | OP.COLON_ITS ---
Patient Name: Angela Dobbins Procedure Date: 08/25/2024 10:37 AM Date of : 1980 Age: 44 Procedure: Colonoscopy Indications: Screening for colorectal malignant neoplasm Providers: DO Nestor Swain MD: Uday Maurer MD Medicines: Monitored Anesthesia Care Patient Profile: This is a 44 year old female. Refer to note in patient chart for documentation of history and physical. Last Colonoscopy: none. The patient's first colonoscopy is today. Complications: No immediate complications. Procedure: Pre-Anesthesia Assessment: - Prior to the procedure, a History and Physical was performed, and patient medications and allergies were reviewed. The patient is competent. The risks and benefits of the procedure and the sedation options and risks were discussed with the patient. All questions were answered and informed consent was obtained. Patient identification and proposed procedure were verified by the physician in the pre-procedure area. Mental Status Examination: alert and oriented. Airway Examination: normal oropharyngeal airway and neck mobility. Respiratory Examination: clear to auscultation. CV Examination: normal. Prophylactic Antibiotics: The patient does not require prophylactic antibiotics. Prior Anticoagulants: The patient has taken no anticoagulant or antiplatelet agents. ASA Grade Assessment: II - A patient with mild systemic disease. After reviewing the risks and benefits, the patient was deemed in satisfactory condition to undergo the procedure. The anesthesia plan was to use monitored anesthesia care (MAC). Immediately prior to administration of medications, the patient was re-assessed for adequacy to receive sedatives. The heart rate, respiratory rate, oxygen saturations, blood pressure, adequacy of pulmonary ventilation, and response to care were monitored throughout the procedure. The physical status of the patient was re-assessed after the procedure. After I obtained informed consent, the scope was passed under direct vision. Throughout the procedure, the patient's blood pressure, pulse, and oxygen saturations were monitored continuously. The colonoscope was introduced through the anus and advanced to the terminal ileum. The colonoscopy was performed without difficulty. The patient tolerated the procedure well. The quality of the bowel preparation was adequate. The terminal ileum, ileocecal valve, appendiceal orifice, and rectum were photographed. Scope In: 10:44:38 AM Scope Withdrawal Time 0 hours 14 minutes 16 seconds Scope Out: 11:02:28 AM Total Procedure Duration Time 0 hours 17 minutes 50 seconds Findings: Hemorrhoids were found on perianal exam. A 7 mm polyp was found in the rectum. The polyp was sessile. The polyp was removed with a jumbo cold forceps. Resection and retrieval were complete. Verification of patient identification for the specimen was done. Estimated blood loss was minimal. A few small-mouthed diverticula were found in the recto-sigmoid colon. The exam was otherwise without abnormality on direct and retroflexion views. Impression: - Hemorrhoids found on perianal exam. - One 7 mm polyp in the rectum, removed with a jumbo cold forceps. Resected and retrieved. - Diverticulosis in the recto-sigmoid colon. - The examination was otherwise normal on direct and retroflexion views. Recommendation: - Discharge patient to home. - Resume previous diet. - Continue present medications. - Repeat colonoscopy in 5 years for surveillance. Procedure Code(s): --- Professional --- 44838, Colonoscopy, flexible; with biopsy, single or multiple CPT copyright 2021 [employer]. All rights reserved. The codes documented in this report are preliminary and upon nursing home aide review may be revised to meet current compliance requirements. Gary Starks DO 08/25/2024 11:11:55 AM This report has been signed electronically. Number of Addenda: 0 Note Initiated On: 08/25/2024 10:37 AM
--- NOTE | 2024-08-25 11:12 | PCM.POST.ANE ---
Anesthesia: Postop Eval I Current Vital Signs Temperature: 97.4 F Pulse Rate: 70 Blood Pressure: 83/46 Respiratory Rate: 16 Pulse Ox: 99 Oxygen Delivery Method: Room Air Assessment Airway patent: Yes Spontaneous unlabored respirations: Yes Mental status: Awake and Calm nausea: No Vomiting: No Anesthesia Complication: No Fluid Hydration Crystalloid volume administer (ml): 60 Total IV fluid infused: 60 Progress Note Anesthesia document: Postop Eval 1 completed: Yes
--- NOTE | 2024-08-25 11:16 | PCM.POSTANE2 ---
Anesthesia Postop Eval I Sum Postop Eval Completion status Anesthesia document: Postop Eval 1 completed: Yes Anesthesia Postop Eval I Summary Anesthesia Postop Eval I Summary: Anesthesia Postop Eval I: Assessment Summary Airway patent Yes 08/25/24 11:13 [email or web address] Spontaneous unlabored Yes 08/25/24 11:13 [email or web address] respirations Mental status Awake,Calm 08/25/24 11:13 [email or web address] nausea No 08/25/24 11:13 [email or web address] Vomiting No 08/25/24 11:13 [email or web address] Anesthesia Postop Eval I: Fluid Summary Crystalloid volume administer 60 08/25/24 11:13 [email or web address] (ml) Colloids volume administered ( ml) Blood Product volume administered (ml) Total IV fluid infused 60 08/25/24 11:13 [email or web address] Anesthesia Postop Eval I: Summary Notes Anesthesia Complication No 08/25/24 11:13 [email or web address] Anesthesia Complication Comment: Post-operative progress note Anesthesia: Postop Eval II Evaluation Mental status: Awake Pain Level: 0 nausea: No Vomiting: No
== END 2024-08-25 11:45 | disposition home or self-care (01) ==
LOC: EN 09:09 → AC 09:10
PROVIDERS: PCP Family Medicine; Referring Provider Family Medicine; Visit Provider Internal Medicine Gastroenterology
PROC: 0DJD8ZZ Inspection of Lower Intestinal Tract, Via Natural or Artificial Opening Endoscopic (ICD-10-PCS; CPT 45378; principal; 2024-08-25 10:10)
DX: Z12.11 Encounter for screening for malignant neoplasm of colon (principal); K58.0 Irritable bowel syndrome with diarrhea; D12.8 Benign neoplasm of rectum; E78.00 Pure hypercholesterolemia, unspecified; K64.9 Unspecified hemorrhoids; K57.30 Diverticulosis of large intestine without perforation or abscess without bleeding; F17.200 Nicotine dependence, unspecified, uncomplicated; Z79.899 Other long term (current) drug therapy
CPT/HCPCS: 45380; 88305; A4216; J2405